=== PATIENT | male | born 1995 | race African-American/Black ===

== ENCOUNTER 2024-12-21 00:19 | Emergency (ER) | payer OTHER ==
[~2024-12-21] VITALS: Ht 167.6 cm; Wt 140.9 kg
[~2024-12-21 00:19] MED LIST: QUET300T2 PO
[2024-12-21 00:27] VITALS: TEMP 98.4
[2024-12-21] MEDS: BACITRACIN 28 GM OINTMENT TP ONE (02:16)
[2024-12-21] MEDS: PERTUSS(ACELL),DIPH,TET/PF 0.5 ML SYRINGE [ADULT] IM. ONE (02:26)
[2024-12-21 02:51] VITALS: BP 139/80; PULSE 87; RESP 16; O2SAT 97
[2024-12-21] MEDS ORDERED: CEPH-558 PO (02:51)
== END 2024-12-21 03:08 | disposition home or self-care (01) ==
LOC: EMS 00:24
DX: S02.31XA Fracture of orbital floor, right side, initial encounter for closed fracture (principal); F20.9 Schizophrenia, unspecified; F31.9 Bipolar disorder, unspecified; F17.210 Nicotine dependence, cigarettes, uncomplicated; Z79.899 Other long term (current) drug therapy; W50.0XXA Accidental hit or strike by another person, initial encounter; Y93.89 Activity, other specified; Y92.89 Other specified places as the place of occurrence of the external cause; Y99.8 Other external cause status
CPT/HCPCS: 70486; 90715; 99284